=== PATIENT | female | born 1945 | race American Indian/Alaskan Native ===

== ENCOUNTER 2019-05-15 10:16 | Emergency (ER) | payer MEDICARE, BC ==
[2019-05-15] MEDS ORDERED: NORCO 5/325 PO ONE (12:28)
[2019-05-15] MEDS ORDERED: TORADOL IM ONE (12:28)
[2019-05-15] MEDS ORDERED: DECADRON IM STA (12:28)
--- NOTE | 2019-05-15 12:28 | Emergency Department Report ---
HPI - General Chief Complaint: Pain General Time Seen by Provider: 05/15/19 11:02 - HPI HPI: This is a 73-year-old female here reported that she is having right lower back pain with radiation of pain down to her right lower extremity. She says she has not had this kind of pain before and denies any urinary symptoms.History of arthritis. She is pointing to her right flank. Denies blood in her urine or any history of kidney stones. She has a history of high blood pressure and a blood pressure stable at present. Denies any nausea or vomiting or fever or chills. Pain is sharp and achy radiating down her lower extremity and it is 9 out of 10 and constant and worsening over the last 2 days. She appears to be very uncomfortable and she has not taken any medication per patient. Denies any history of constipation and she says she had a normal bowel movement this morning. Denies any loss of bowel or bladder function. Denies any fall. Denies any shortness of breath or chest pain. Pain is constant and worse with movement. ED Past Medical Hx - Past Medical History Previous Medical History?: Yes Hx Hypertension: Yes - Surgical History Past Surgical History?: Yes Additional Surgical History: SANDEE - Family History Family history: hypertension - Social History Smoking Status: Never Smoker Substance Use Type: None - Medications Home Medications: Home Medications Medication Instructions Recorded Confirmed Last Taken Type Acetaminophen/Codeine [Tylenol 1 tab PO QHS PRN #6 tab 05/15/19 Unknown Rx /Codeine # 3 tab] Cyclobenzaprine [Flexeril 10mg] 10 mg PO Q12H PRN #14 tablet 05/15/19 Unknown Rx Naproxen [Naprosyn] 500 mg PO Q12H PRN #12 tablet 05/15/19 Unknown Rx ED Review of Systems ROS: Stated complaint: R SIDE PAIN Other details as noted in HPI Physical Exam - Physical Exam Vital Signs: Vital Signs 05/15/19 10:23 Temperature 98.1 F Pulse Rate 85 Respiratory 16 Rate Blood Pressure 161/66 O2 Sat by Pulse 97 Oximetry Vital Signs 05/15/19 05/15/19 10:23 16:05 Temperature 98.1 F Pulse Rate 85 59 L Respiratory 16 18 Rate Blood Pressure 161/66 Blood Pressure 159/62 [Right] O2 Sat by Pulse 97 98 Oximetry General: This 73-year-old female well-nourished well-developed in no acute distress. Physical Exam: Head: Normocephalic atraumatic. Scalp examination and normal. Nontender to palpate. No abrasion, contusion or hematoma noted. Mouth: Oral mucosa moist, tongue is normal, uvula is midline, no PICKLE SORTER or drooling, oral airways patent and uvula is Lungs: They are to auscultated bilaterally, no rhonchi wheezes or rales. No use of accessory muscles. No chest wall tenderness CV: S1, S2. Regular rate rhythm negative murmur. Eyes: Bilateral pupils equal and reactive to light, conjunctival injection or icterus. Bilateral EOM intact and normal accommodation. No nystagmus. Lids are normal. She has swelling below her lower lids that is not erythema and nontender to palpate. No induration and no sign of cellulitis. Skin: Clean dry and intact, no rash or lesions. Extremity: No cce. + 2 pulses in all extremities, no neurovascular compromise.No laceration, bruises then or contusion noted to extremities. Negative Homans signs bilaterally. No palpable cord bilateral lower extremity. Musculoskeletal: Range of motion in all extremities, no joint crepitus, erythema or effusion. Skin: Clean dry and intact, no rashes no lesions Mood: Normal mood and behavior ED Course Vital Signs 05/15/19 10:23 Temperature 98.1 F Pulse Rate 85 Respiratory 16 Rate Blood Pressure 161/66 O2 Sat by Pulse 97 Oximetry - Reevaluation(s) Reevaluation #1: 05/15/19 16:18 Patient was given Toradol 30 mg IM and Decadron 10 mg IM in the emergency room along with Burton 5/325 one tablet by mouth for pain and she weighs that her pain is better. She is in stable condition and her vital signs stable she is afebrile. ED Medical Decision Making - Radiology Data Radiology results: report reviewed Findings [facility] [address] [place] [address] Cat Scan Report Signed Patient: VICKY HURD MR#: [id number] : 1945 Acct:[id number] Age/Sex: 73 / F ADM Date: 05/15/19 Loc: ED Attending Dr: Ordering Physician: MISHEL LAWLER Date of Service: 05/15/19 Procedure(s): CT abdomen pelvis wo con Accession Number(s): [id number] cc: MISHEL LAWLER PROCEDURE: CT ABDOMEN PELVIS WO CON TECHNIQUE: Computerized axial tomography of the abdomen and pelvis was performed without intravenous contrast. This study is performed without intravascular contrast material and its sensitivity for abdominal and pelvic pathology, including neoplasms, inflammation, abscess, free fluid, thrombosis, arterial dissection and infarction, is reduced compared with a contrast enhanced study. CT DOSE LENGTH PRODUCT: 1299.1 mGycm HISTORY: right flank pain and back pain /Radiculopathy COMPARISONS: None . FINDINGS: Visualized lower thorax: Mild bibasilar bronchiectasis. Liver: Normal size and attenuation. Spleen: Normal size and attenuation. Gallbladder and biliary system: Gallbladder is present. Pancreas: Normal. Adrenals: Normal. Kidneys: There is a punctate nonobstructing calculus in the left kidney upper pole. No hydronephrosis or ureteral calculi are seen bilaterally. GI tract: Scattered colonic diverticulosis. There is moderate volume of stool seen throughout the colon. No appendiceal inflammation. No bowel obstruction or bowel inflammation . Lymph nodes and mesentery: Normal. Vasculature: Normal.. Bladder: Normal. Reproductive organs: Normal. Peritoneum: No free fluid. Musculoskeletal structures: Facet arthritic changes in the lumbar spine. Limited evaluation of disc material. There are probable posterior disc herniations at L3-4, L4-5, and L5- S1. Other: Numerous bilateral injection granulomas are seen in the subcutaneous gluteal region. IMPRESSION: Punctate nonobstructing calculus in left kidney upper pole. No hydronephrosis or ureteral calculi. No acute inflammatory process is seen. Lumbar spine degenerative changes This document is electronically signed by Gretchen Lund MD., May 15 2019 02:28:43 PM ET Transcribed By: [facility] Dictated By: GRETCHEN LUND M.D. Electronically Authenticated By: GRETCHEN LUND M.D. Signed Date/Time: 05/15/19 1430 DD/ 1415 TD/TT: 05/15/19 1416 - Differential Diagnosis lumbar spine disease with radiculopathy, kidney stone ,UTI, Critical care attestation.: If time is entered above; I have spent that time in minutes in the direct care of this critically ill patient, excluding procedure time. ED Disposition Clinical Impression: Renal calculus, left, Lumbar radiculopathy, right, Degenerative disc disease, lumbar, Lumbar disc herniation Disposition: DC-01 TO HOME OR SELFCARE Is pt being admited?: No Does the pt Need Aspirin: No Condition: Stable Instructions: Degenerative Disc Disease (ED), Kidney Stones (ED), Lumbar Disc Herniation (ED), Lumbar Radiculopathy (ED) Additional Instructions: Please see discharge instruction on different diagnosis. Please see referral to primary care doctor and call tomorrow to schedule an appointment for follow-up. Follow-up with orthopedic doctor and take CT scan CD that was given to you. Please follow up with urologist regarding left kidney stone Take medication as prescribed and only take Tylenol 3 at night for pain. Take Flexeril muscle relaxer twice daily. Please do not drive or operate heavy machinery while taking Tylenol No. 3 or Flexeril as they can cause her drowsiness Take naproxen for pain but please see this medication with food to cause stomach upset Increase her fluid intake See information given on back stretches If he condition worsens, please return to emergency room Referrals: KAYY LUO MD [Staff Physician] - 3-5 Days CHRIS LEON MD [Staff Physician] - 3-5 Days [facility] [Provider Group] - 3-5 Days Forms: Accompanied Note, Work/School Release Form(ED)
--- NOTE | 2019-05-15 14:30 | Cat Scan Report ---
PROCEDURE: CT ABDOMEN PELVIS WO CON TECHNIQUE: Computerized axial tomography of the abdomen and pelvis was performed without intravenous contrast. This study is performed without intravascular contrast material and its sensitivity for ab dominal and pelvic pathology, including neoplasms, inflammation, abscess, free fluid, thrombosis, art erial dissection and infarction, is reduced compared with a contrast enhanced study. CT DOSE LENGTH PRODUCT: 1299.1 mGycm HISTORY: right flank pain and back pain /Radiculopathy COMPARISONS: None . FINDINGS: Visualized lower thorax: Mild bibasilar bronchiectasis. Liver: Normal size and attenuation. Spleen: Normal size and attenuation. Gallbladder and biliary system: Gallbladder is present. Pancreas: Normal. Adrenals: Normal. Kidneys: There is a punctate nonobstructing calculus in the left kidney upper pole. No hydronephrosis or ureteral calculi are seen bilaterally. GI tract: Scattered colonic diverticulosis. There is moderate volume of stool seen throughout the co mitul. No appendiceal inflammation. No bowel obstruction or bowel inflammation . Lymph nodes and mesentery: Normal. Vasculature: Normal.. Bladder: Normal. Reproductive organs: Normal. Peritoneum: No free fluid. Musculoskeletal structures: Facet arthritic changes in the lumbar spine. Limited evaluation of disc m aterial. There are probable posterior disc herniations at L3-4, L4-5, and L5-S1. Other: Numerous bilateral injection granulomas are seen in the subcutaneous gluteal region. IMPRESSION: Punctate nonobstructing calculus in left kidney upper pole. No hydronephrosis or ureteral calculi. No acute inflammatory process is seen. Lumbar spine degenerative changes This document is electronically signed by Gretchen Lund MD., May 15 2019 02:28:43 PM ET
[2019-05-15 16:06] VITALS: BP 159/62
== END 2019-05-15 17:01 | disposition home or self-care (01) ==
LOC: ED 10:16
DX: M54.16 Radiculopathy, lumbar region (principal); M51.36 Other intervertebral disc degeneration, lumbar region; N20.0 Calculus of kidney; M51.26 Other intervertebral disc displacement, lumbar region; I10 Essential (primary) hypertension; Z98.890 Other specified postprocedural states
CPT/HCPCS: 74176; 96372; 99283; J1100; J1885

== ENCOUNTER 2020-01-31 11:35 | Outpatient (CLI) | payer MEDICARE, BC ==
--- NOTE | 2020-01-31 12:48 | XRay Report ---
BILATERAL KNEE RADIOGRAPHS ONE VIEW INDICATION / CLINICAL INFORMATION: M25.569 /ALAINA KNEE PAIN COMPARISON: None available. FINDINGS: Standing AP views of the knees were obtained. BONES / JOINT(S): No fracture is seen on this single view. There is slight narrowing of the medial co mpartment of the right knee. No focal lytic or sclerotic lesions are seen. SOFT TISSUES: No significant abnormality. ADDITIONAL FINDINGS: None. Signer Name: Barak Thao MD Signed: 01/31/2020 12:43 PM Workstation Name: [email or web address]
--- NOTE | 2020-01-31 12:49 | XRay Report ---
RIGHT KNEE 3 VIEWS INDICATION / CLINICAL INFORMATION: M79.671 PAIN IN RIGHT FOOT COMPARISON: None available. FINDINGS: BONES / JOINT(S): No acute fracture or subluxation. There is mild bunion deformity of the great toe. SOFT TISSUES: No significant abnormality. ADDITIONAL FINDINGS: None. Signer Name: Barak Thao MD Signed: 01/31/2020 12:45 PM Workstation Name: [id number]
== END 2020-01-31 11:36 | disposition home or self-care (01) ==
LOC: XRAY 11:35
PROVIDERS: ATTEND Orthopaedic Surgery
DX: M20.5X1 Other deformities of toe(s) (acquired), right foot (principal); M79.671 Pain in right foot
CPT/HCPCS: 73565